=== PATIENT | male | born 1990 | race Caucasian/White ===

== ENCOUNTER 2024-07-05 09:39 | Emergency (ER) | payer SELFPAY ==
[2024-07-05 09:56] VITALS: BP 123/73
[2024-07-05 10:21] LABS: % Basophils 0.5 % (0-2); % Eosinophils 3.4 % (0-6); % Immature Granulocytes 0.2 % (0-0.5); % Lymphocytes 33.4 % (20.5-51.1); % Monocytes 9.3 % (1.7-9.3); % Neutrophils 53.2 % (42.2-75.2); Absolute Eosinophils 0.2 10^3/uL (0-0.7); Absolute Lymphocytes 1.8 10^3/uL (1.2-3.4); Absolute Monocytes 0.5 10^3/uL (0.1-0.6); Absolute Neutrophils 2.9 10^3/uL (1.4-6.5); Hematocrit 44.4 % (39.0-52.0); Mean Corpuscular Hgb 30.4 pg (27.0-31.0); Mean Corpuscular Volume 84.4 fL (80.0-94.0); Mean Platelet Volume 11.2 fL (7.4-10.4); Nucleated Red Blood Cells % 0 % (-); Platelet Count 176 10^3/uL (130-400); Red Blood Cell Count 5.26 10^6/uL (4.70-6.10); Red Cell Dist. Width 12.3 % (11.5-14.5); White Blood Cell Count 5.5 10^3/uL (4.8-10.8)
[2024-07-05 10:37] LABS: APTT 32.9 Sec (23.4-35.0); INR 1.21; PT 15.1 Sec (11.4-14.6)
[2024-07-05 11:07] LABS: ALT (SGPT) 32 U/L (0-50); AST (SGOT) 35 U/L (17-59); Albumin 5.1 g/dl (3.5-5.0); Alkaline Phosphatase 51 U/L (38-126); Blood Urea Nitrogen 18 mg/dl (9-20); Calcium 10.2 mg/dl (8.4-10.2); Carbon Dioxide 25 mmol/L (22-30); Chloride 101 mmol/L (98-107); Glucose 103 mg/dl (70-99); Potassium 4.4 mmol/L (3.5-5.1); Sodium 140 mmol/L (135-145); Total Bilirubin 0.9 mg/dl (0.2-1.3); Total Protein 7.8 g/dl (6.3-8.2); eGFR > 60.00
--- NOTE | 2024-07-05 11:46 | ED.GENMED ---
History of Present Illness
General
Chief Complaint: Rectal Bleeding
Source: patient
Exam Limitations: none
Time Seen by Provider: 07/05/24 10:51
Nursing documentation reviewed up to this point in time: agreed with
History of Present Illness
History of Present Illness:
33-year-old male with past medical history of hypertension, hyperlipidemia, recently diagnosed atrial fibrillation on Xarelto who presents to the emergency department for evaluation of fatigue, myalgias; he also noted some small bright red blood on
toilet paper this morning. Patient reports that he had an episode of atrial fibrillation that he thinks was triggered by nicotine and alcohol use while he was visiting [place]; he went to the emergency room there and he says that he had a
cardioversion and was sent home on Xarelto. No other medications were started on discharge. He says that cardioversion occurred on 06/30/2024 and he has been on Xarelto since. He says that since leaving the ER there he has noticed he has been
feeling very fatigued and generally achy�'like I have a fever, but I do not have a fever.' He says he feels more tired than usual. He denies any sore throat or runny nose. He has had a mild cough which he says is been ongoing since a viral
infection 3 weeks ago. He says generally it is mild and nonproductive. He denies any chest pain, shortness of breath, palpitations. Denies any abdominal pain, nausea, vomiting, diarrhea. He has a history of hemorrhoids and does note that today
when he had a bowel movement he noted some bright red blood on the toilet tissue but no significant blood in the stool. He denies any urinary symptoms. He denies any other complaints.
Past History
Past History
ED Past Medical History: HTN, Hypercholesterolemia and Psychiatric (Anxiety)
ED Past Surgical History: Other ([place] teeth)
Social History
Tobacco: Non-smoker
Alcohol: None
Review of Systems
Review of Systems
All Other Systems: ROS reviewed and negative except as documented in HPI and ROS
Constitutional: Reports fatigue; Denies fever or chills
EENT: Denies sore throat or runny nose
Respiratory: Reports cough; Denies trouble breathing
Cardiac: Denies chest pain, diaphoresis or palpitations
ABD/GI: Reports bloody stools (Blood on toilet tissue); Denies abdominal pain, nausea, vomiting or diarrhea
: Denies dysuria, frequency or flank pain
Musculoskeletal: Denies neck pain or back pain
Neurological: Reports weakness (Generalized weakness/fatigue); Denies dizzy, headache or numbness
Phy Exam
Physical Exam
Physical Exam:
General: Awake, alert, oriented x3; no acute distress
Head: Normocephalic, atraumatic
Eyes: Conjunctiva normal, pupils equal round and reactive to light bilaterally
Throat: Airway intact, handling secretions
Neck: Trachea midline, supple without meningismus
Lungs: Clear to auscultation bilaterally, no wheezing, rales, rhonchi
Heart: Regular rate and rhythm, no murmurs, gallops, or rubs
Abd: Soft, non distended, nontender
Rectal: External hemorrhoid no active bleeding noted, no internal hemorrhoids or masses, brown stool heme-negative
Neuro: No gross deficits
Skin: no rash
Extremities: Warm and well-perfused
Scores
GI Bleed
History of cardiac failure?: No
History of hepatic failure?: No
History of recent syncope?: No
Pulse >100?: No
SBP <110?: No
Hgb <13 (male) <12 (female)?: No
BUN >18mg/dL?: No
Melena present?: No
Recommendation: Pt considered low risk GI bleed.
Heart Failure Risk
Heart Failure Risk Score: Not Applicable
Heart Score for Chest Pain Patients
STEMI patient?: Not applicable
Withdrawal Assessment of Alcohol
Withdrawal Assessment Completed?: Not applicable
Course
Orders/Labs/Results
Orders:
Orders
07/05/24 10:14
Type+Screen Urgent
Complete Blood Count/With Diff Urgent
Comprehensive Metabolic Panel Urgent
PTT Urgent
Prothrombin Time Urgent
07/05/24 11:37
Electrocardiogram (*1) Urgent
Reason for Study: Other
Other Reason for Exam: rectal bleeding
EKG- Treatment ONCE
07/05/24 11:45
CR Chest - 2 Views Urgent
Comment:
Reason For Exam: cough
Abnormal Lab Results
07/05/24
10:14
MPV 11.2 H fL
(7.4-10.4)
PT 15.1 H Sec
(11.4-14.6)
Glucose 103 H mg/dl
(70-99)
Albumin 5.1 H g/dl
(3.5-5.0)
07/05/24 10:14
07/05/24 10:14
Vital Signs
Initial and Last Documented VS:
Initial Vital Signs
Temp Pulse Resp BP Pulse Ox
36.4 C 85 18 123/73 99
07/05/24 09:56 07/05/24 09:56 07/05/24 09:56 07/05/24 09:56 07/05/24 09:56
Last Documented Vital Signs
Temp Pulse Resp BP Pulse Ox
36.4 C 85 18 123/73 99
07/05/24 09:56 07/05/24 09:56 07/05/24 09:56 07/05/24 09:56 07/05/24 09:56
MDM/Problems Addressed
Differential Diagnosis Includes:
Recurrent atrial fibrillation, viral illness, anemia, dehydration, electrolyte derangement, pneumonia
MDM/Problems Addressed:
33-year-old male presents to the emergency room for fatigue and achiness over the past 5 days�started shortly after he was diagnosed with new onset A-fib and cardioverted, initiated on Xarelto. Aside from above symptoms he says he has had a mild
cough for 3 weeks�he says he has a virus and the cough never quite went away. Also reports that this morning he noticed some blood on the toilet tissue no heavy bleeding. History of hemorrhoids. His vital signs are normal. Physical exam as
above�notably he does have an external hemorrhoid no active bleeding noted, brown stool heme-negative. Will place an IV check labs including a CBC, CMP, coags. Will check chest x-ray to rule out pneumonia with his persistent cough. Will check EKG
to rule out A-fib. Swab for COVID. Reassess after the above.
Labs reviewed: CBC shows robust hemoglobin of 16�patient had hemorrhoid only blood on the toilet tissue suspect this is a hemorrhoidal bleed. No clear indication for admission hospital with no additional bleeding and stable vitals and hemoglobin
after slight hemorrhoidal bleed. CMP shows no clinically significant abnormalities. EKG, chest x-ray pending. COVID pending.
Chronic conditions affecting care:
A-fib on Xarelto
Chronic conditions affecting care: Arrhythmia
*Radiology
Radiology exam reviewed: preliminary read by ED provider and radiology read reviewed
*Pulse Oximetry
Patient hypoxic: no
*Critical Care Note
Total Time (30-74mins, 75-104mins- exclusive of procedures): Not Applicable
Data Reviewed
Source: patient
ED Attending Note
-
Portions of this chart may have been created with voice recognition software.� Occasional wrong word or��sound alike� substitutions may have occurred due to the inherent limitations of voice recognition software.
Discharge Plan
Departure
Prescriptions:
No Action
Xarelto 20 mg Tablet
20 mg PO QPM
Referrals:
Trinh Gibson MD [Family Provider] -
Discharge Date and Time
Print Language: SENEGALESE
[2024-07-05 11:58] VITALS: BP 117/72
[2024-07-05 12:14] VITALS: BP 108/72
[2024-07-05 13:02] LABS: COVID-19 Antigen Negative (Negative)
[2024-07-05 13:39] VITALS: BP 132/71
== END 2024-07-05 13:40 | disposition home or self-care (01) ==
LOC: EMR 09:39
PROVIDERS: EMERGENCY PHYSICIAN Emergency Medicine; FAMILY PHYSICIAN Internal Medicine
DX: R53.83 Other fatigue (principal); R05.9 Cough, unspecified; K64.4 Residual hemorrhoidal skin tags; R53.1 Weakness; K62.5 Hemorrhage of anus and rectum; Z11.52 Encounter for screening for COVID-19; I10 Essential (primary) hypertension; E78.00 Pure hypercholesterolemia, unspecified; I48.91 Unspecified atrial fibrillation; F41.9 Anxiety disorder, unspecified; Z79.01 Long term (current) use of anticoagulants; Z86.16 Personal history of COVID-19; Z91.013 Allergy to seafood
CPT/HCPCS: 99283; 71046; 80053; 85025; 85610; 85730; 86850; 86900; 86901; 87811; 93005